=== PATIENT | female | born 1980 | race Caucasian/White ===

== ENCOUNTER 2019-06-04 22:19 | Inpatient (IN) ==
[2019-06-04] MEDS ORDERED: TORADOL IV ONE (22:54)
[2019-06-04] MEDS ORDERED: NS 1,000 ML IV ONE (22:54)
[2019-06-04] MEDS ORDERED: ZOFRAN IV ONE (22:54)
[2019-06-04 23:03] LABS: URINE SOURCE CLEAN CATCH
[2019-06-04 23:23] LABS: URINE EPITHELIAL CELLS >10 /HPF (<10); URINE RBC <10 /HPF (<10)
[2019-06-04 23:24] LABS: BILIRUBIN URINE NEGATIVE (NEGATIVE); CLARITY SLIGHTLY CLOUDY (CLEAR); COLOR AMBER; GLUCOSE URINE NEGATIVE (NEGATIVE); KETONE URINE 40 mg/dL (NEGATIVE); URINE BACTERIA 1+ /HFP; URINE CAST NONE SEEN /LPF; URINE CRYSTAL NONE SEEN /HPF; URINE YEAST NONE SEEN /HPF
[2019-06-04 23:25] LABS: BLOOD URINE NEGATIVE (NEGATIVE); LEUKOCYTES URINE MODERATE (NEGATIVE); NITRITE URINE NEGATIVE (NEGATIVE); PROTEIN URINE TRACE mg/dL (NEGATIVE); SP GRAVITY URINE 1.025
[2019-06-04 23:44] LABS: UR AMPHETAMINES QUAL PRESUMPTIVE POSITIVE (NONE DETECT); UR BARBITUATES QUAL NONE DETECTED (NONE DETECT); UR BENZODIAZEPIN QUAL NONE DETECTED (NONE DETECT); UR CANNABINOIDS QUAL NONE DETECTED (NONE DETECT); UR COCAINE QUAL NONE DETECTED (NONE DETECT); UR METHADONE QUAL NONE DETECTED (NONE DETECT); UR METHAMPHETAMINE QUAL NONE DETECTED (NONE DETECT); UR OPIATES QUAL PRESUMPTIVE POSITIVE (NONE DETECT); UR OXYCODONE QUAL NONE DETECTED (NONE DETECT); UR PCP QUAL NONE DETECTED (NONE DETECT); UR PROPOXYPHENE QUAL NONE DETECTED (NONE DETECT); UR TCA QUAL NONE DETECTED (NONE DETECT)
[2019-06-04 23:45] LABS: BASO# 0.03 X1000 (0.0-0.2); BASO% 0.3 % (0.0-0.8); EOS# 0.11 X1000 (0.0-0.7); EOS% 1.2 % (0.0-10.0); HEMATOCRIT 34.7 % (37.0-47.0); HEMOGLOBIN 10.2 g/dL (12.0-16.0); IMM GRAN# 0.01 X1000 (0.0-0.04); IMM GRAN% 0.1 % (0.0-0.5); LYMPH# 1.01 X1000 (1.2-3.4); MCH 20.1 PG (27-31); MCHC 29.4 g/dL (33-37); MCV 68.3 FL (81-99); MONO# 0.29 X1000 (0.11-0.59); MONO% 3.2 % (1.7-9.3); MPV 10.2 FL (7.4-10.4); NEUT# 7.73 X1000 (1.4-6.5); NEUT% 84.2 % (42.2-75.2); PLT 538 X1000 (130-400); RBC 5.08 XMIL (4.2-5.4); RDW 19.2 % (11.5-14.5); WBC 9.18 X1000 (4.8-10.8)
[2019-06-04 23:49] LABS: AGAP 16; ALBUMIN 4.8 g/dL (3.5-5.0); ALKALINE PHOSPHATASE 157 U/L (32-104); BUN 6 mg/dL (8-22); CALCIUM 9.5 mg/dL (8.8-10.2); CHLORIDE 100 mmol/L (98-107); COSMO 271; CREATININE 0.4 mg/dL (0.5-0.9); ESTIMATED GFR > 60; GLUCOSE 97 mg/dL (70-104); GOT 144 U/L (10-30); GPT 75 U/L (10-36); LIPASE 77 U/L (13-60); POTASSIUM 3.7 mmol/L (3.5-5.1); SODIUM 137 mmol/L (136-145); TCO2 22 mmol/L (25-35); TOTAL PROTEIN 8.5 g/dL (6.3-8.3)
--- NOTE | 2019-06-05 00:39 | PROVIDER DOCUMENTATION ---
This chart was entered by Cheri Dee Scribe, acting as scribe for Ana Morris MD. HPI-Abdominal Pain/GI Problem - General Chief Complaint: Abdominal Pain Stated Complaint: ABD PAIN Time Seen by Provider: 06/04/19 23:06 Source: patient Allergies/Adverse Reactions: Patient Allergies Allergy/AdvReac Type Severity Reaction Status Date / Time Penicillins Allergy Severe RASH Verified 04/14/19 15:00 Home Medications: Home Medication List Medication Instructions Recorded Confirmed Last Taken Type Dicyclomine HCl 20 mg PO Q6H PRN PRN #20 tab 03/03/19 06/04/19 Unknown Rx Ketorolac [Toradol] 10 mg PO Q6H PRN PRN #20 tab 03/03/19 06/04/19 Unknown Rx Ondansetron [Ondansetron Odt] 4 mg PO Q6-8H PRN PRN #10 04/14/19 06/05/19 Unknown Rx tab.rapdis - History of Present Illness-ABD Nature of Presenting Problems: pt is a 38yowf c/o gall bladder attack starting 1430 today. pt had noodles for lunch, no breakfast and mashed potatoes for dinner night before last. pt has been seen in er 2x for same and sts needs cholecystectomy but is waiting on medicaid to have sx. pt has been vomiting white/clear emesis. no dysuria or diarrhea. no sick contacts. She states she had a temp last night 102 but no temp today. She states she is unable to eat anything and the pain is getting worse. Abdominal Pain Onset Location: reports: RUQ Pain Radiation: reports: back Severity in ED: reports: mild Onset/Duration: reports: this afternoon Timing: reports: still present Activities at Onset: reports: none Exposure to sick contacts?: No Modifying Factors: improves with: nothing Associated Symptoms: reports: vomiting. denies: diarrhea Review of Systems - Adult - REVIEW OF SYSTEMS - ADULT Constitutional: reports: no symptoms reported. denies: fever, fatique, night sweats Eyes: reports: no symptoms reported Ears, Nose, Mouth & Throat: reports: no symptoms reported Cardiovascular: reports: no symptoms reported Respiratory: reports: no symptoms reported Gastrointestinal: reports: see HPI, abdominal pain, vomiting. denies: hematemesis, diarrhea, rectal bleeding Genitourinary: reports: no symptoms reported Musculoskeletal: reports: no symptoms reported Integumentary: reports: no symptoms reported Neurological: reports: no symptoms reported Psychiatric: reports: no symptoms reported Endocrine: reports: no symptoms reported Hematologic/Lymphatic: reports: no symptoms reported Allergic/Immunologic: reports: no symptoms reported All Other Systems: Reviewed and Negative Past History - Adult - PAST MEDICAL HISTORY-ADULT Review of Records: reports: Nursing Assessment Review, Medications Reviewed, Social history reviewed & non-contributory. Major Childhood Illnesses: reports: denies history Cardiovascular: reports: denies history Respiratory: reports: denies history Gastrointestinal: reports: cholelithiasis Obstetrical/Gynecological: reports: denies history Genitourinary: reports: denies history Musculoskeletal: reports: denies history Neurological: reports: denies history Psychiatric: reports: anxiety, other (panic attacks) Endocrine/Immune: reports: denies history Other Conditions: reports: denies history - PRIOR SURGERIES/PROCEDURES Surgical/Procedure History: reports: appendectomy, BTL - IMMUNIZATION STATUS Childhood Immunizations: UTD Flu Vaccine: NUTD - FAMILY HISTORY Family History: reviewed, not pertinent - SOCIAL HISTORY Smoking: cigarettes, less than 1 pack/day Provider spent 3-5 mins advising pt. on dangers of tobacco.: Discussed manners to quit use, and f/u contacts for add'l counseling. Substance Use: alcohol Alcohol Use Frequency: occasionally Physical Exam-General - PHYSICAL EXAM-ADULT Initial Vital Signs Reviewed: Yes - CONSTITUTIONAL General Appearance: alert, mild distress (uncomfortable appearing). negative: lethargic, slow to respond, obtunded - EYES Eyes: PERRL/EOMI - HEAD, EARS, NOSE, MOUTH & THROAT HENMT: normocephalic/atraumatic, moist mucous membranes - NECK Neck: non-tender, full range of motion, supple, normal inspection - RESPIRATORY Respiratory: chest non-tender, lungs clear, normal breath sounds - CARDIOVASCULAR Cardiovascular: normal peripheral pulses, regular rate, rhythm - GASTROINTESTINAL (ABDOMEN) Abdominal Exam: normal bowel sounds, soft, no organomegaly, no pulsatile mass, tenderness (rt abd and epigastrum on palp). negative: non tender, distended, guarding, rigid - MUSCULOSKELETAL Back Exam: normal inspection Extremity: normal range of motion, non-tender, normal inspection - SKIN Integumentary: normal color, normal turgor, warm/dry - NEUROLOGIC Neurologic: grossly normal, no motor/sensory deficits - PSYCHIATRIC Psych/Mental Status: normal mood/affect, normal thought content, normal thought process, oriented x 3 Progress - PLAN OF CARE/RESULTS Progress/Plan/Lab Results: Vital Signs - 8 hr 06/04/19 22:24 Temperature 97.4 F L Pulse Rate 76 Respiratory Rate 20 Blood Pressure 117/72 O2 Sat by Pulse Oximetry 95 Laboratory Results - last 24 hr 06/04/19 22:48 Urine Source CLEAN CATCH Orders Category Date Time Status Urine Preg [ED: Urine Bedside] ORDERED Care 06/04/19 22:53 Active CBC WITH ELECTRONIC DIFF [HEME] Stat Lab 06/04/19 22:53 Uncollected COMPREHENSIVE METABOLIC PANEL [CHEM] Stat Lab 06/04/19 22:53 Uncollected LIPASE [CHEM] Stat Lab 06/04/19 22:53 Uncollected URINALYSIS W/POSS RFLX CULT [URINALYSIS] Stat Lab 06/04/19 22:48 Results URINE DRUG SCREEN PL Stat Lab 06/04/19 22:48 Received 0.9% Sodium Chloride Inj [Ns] 1,000 ml Med 06/04/19 22:54 Active IV 999 mls/hr Ketorolac [Toradol] Med 06/04/19 22:54 Discontinued 30 mg IV NOW ONE Ondansetron [Zofran] Med 06/04/19 22:54 Discontinued 4 mg IV NOW ONE Result Diagrams: 06/04/19 22:19 06/04/19 22:19 - CT/MRI 1 CT Study: Abdomen (GBW thickening with pericholecystic fluid and moderate biliary ductal dilation. Findings consistent with cholecystitis.) - CONSULTS/PCP/HOSPITALIST Notification #1 *Consult/PCP/Hospitalist*: Dr Aparicio Time Discussed: 03:15 Consult Disposition: Admit Departure - Departure Date of Disposition Decision: 06/05/19 Time of Disposition Decision: 03:20 DIAGNOSIS: Cholelithiases Disposition: ADMITTED INPATIENT 09 Certified Medical Emergency: Emergent Condition: Stable Referrals and Follow-Ups: None,PCP [Primary Care Provider] - - Critical Care Note This patient required my direct & personal management of CC.: No Attestation - Physician/ CINDY Attestation Patient care was provided by Advanced Practice Provider:: No The physician spent face to face time with patient:: Yes Advanced Practice Provider documentation review:: Supervising physician onsite and consulted in the evaluation and care of this patient. The physician did have a face to face encounter with the patient. This chart was documented by the indicated scribe, (Cheri Dee, Leora) and accurately reflects the services I performed and decisions made by me, Ana Morris MD, as attested by the provider's signature.
[2019-06-05] MEDS ORDERED: ZOSYN 4.5 GM in NS 100 ML IV SCH (03:30)
[2019-06-05] MEDS ORDERED: MORPHINE IV PRN (04:07)
[2019-06-05] MEDS ORDERED: ZOFRAN IV PRN (04:07)
[2019-06-05] MEDS ORDERED: NS 1,000 ML IV ONE ×2 (04:07→07:54)
[2019-06-05] MEDS ORDERED: DILAUDID IM PRN (04:07)
[2019-06-05] MEDS ORDERED: TORADOL IV PRN (05:30)
--- NOTE | 2019-06-05 07:58 | Diag Imaging Result Doc PS360 ---
EXAM: CT ABD/PELVIS W/IV CONT ONLY 06/04/2019 HISTORY: cholecystitis TECHNIQUE: This exam was performed using automated exposure control, adjustment of mA or kV according to patient size, and/or use of iterative reconstruction technique. COMMENT: There are ill-defined opacities present in the right lower lobe which may indicate mild bronchopneumonia or atelectasis. There is intrahepatic biliary dilatation. There is pericholecystic fluid. There is a 4 mm stone layering dependently in the gallbladder. The spleen is not enlarged. The adrenal glands are not enlarged. The pancreas is within normal limits. The proximal common bile duct measures 11 mm, the distal common bile duct measures over 8 mm. There are no visible stones in the common bile duct but there is abrupt change in caliber at the ampulla. The kidneys are without evidence of hydronephrosis mass or stones. The aorta is not distended. There is no evidence of bowel obstruction or significant adenopathy. Pelvis: The urinary bladder is slightly distended and there is some free fluid in the cul-de-sac. There is some apparent debris in the vaginal vault. There is a small cyst in the right ovary measuring 14 mm. There is no evidence of acute bony abnormality. IMPRESSION: Cholelithiasis and acute cholecystitis with biliary dilatation. The possibility of distal common bile duct stones or debris cannot be excluded. Dilatation of the urinary bladder and free pelvic fluid. Atelectasis in the right lower lobe. Electronically signed by Carson Gallagher 06/05/2019 7:56 AM
[2019-06-05] MEDS ORDERED: NS 100 ML IV SCH (08:00)
[2019-06-05] MEDS ORDERED: NS 1,000 ML IV SCH (09:00)
[2019-06-05] MEDS ORDERED: LEVAQUIN 500 MG/D5W 500 MG/100 ML IVPB IV SCH (09:30)
[2019-06-05] MEDS ORDERED: LR 1,000 ML ONE (09:52)
[2019-06-05] MEDS ORDERED: SENSORCAINE 0.25%/EPI 1:200,000 ONE (09:52)
[2019-06-05] MEDS ORDERED: SODIUM CHLORIDE 0.9% ONE (09:52)
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
[2019-06-05] MEDS ORDERED: QUELICIN (DOSE) ONE (10:18)
[2019-06-05] MEDS ORDERED: DIPRIVAN 1% ONE (10:18)
[2019-06-05] MEDS ORDERED: SODIUM CHLORIDE 0.9% 10 ML ONE (10:18)
[2019-06-05] MEDS ORDERED: NORCURON ONE (10:18)
[2019-06-05] MEDS ORDERED: VERSED ONE ×2 (10:18→10:20)
[2019-06-05] MEDS ORDERED: XYLOCAINE-MPF 2% ONE (10:18)
[2019-06-05] MEDS ORDERED: ROBINUL ONE ×2 (10:20→11:24)
[2019-06-05] MEDS ORDERED: DECADRON ONE (11:21)
[2019-06-05] MEDS ORDERED: ZOFRAN ONE (11:21)
[2019-06-05] MEDS ORDERED: NEOSTIGMINE ONE (11:25)
--- NOTE | 2019-06-05 11:50 | Diag Imaging Result Doc PS360 ---
OPERATIVE CHOLANGIOGRAM - 06/05/2019 INDICATION: CHOLECYSTITIS TECHNIQUE: The exam was performed by the patient's surgeon. Total fluoroscopy time was 26 seconds. Two images were obtained. COMPARISON: CT from earlier FINDINGS: Contrast was infused into the cystic duct. There are some filling defects in the distal most common bile duct. There is no passage of contrast into the duodenum. IMPRESSION: Findings concerning for obstructing stones at the distal common bile duct. Electronically signed by Eliezer Molina 06/05/2019 11:48 AM
[2019-06-05] MEDS: DILAUDID ONE ×2 (12:39→12:48)
[2019-06-05] MEDS: NS 1,000 ML IV SCH (14:19)
[2019-06-05] MEDS: NORCO-10 PO PRN ×2 (18:45→23:24)
--- NOTE | 2019-06-05 20:36 | OPERATIVE NOTE ---
PROCEDURE DATE: 06/05/2019 PROCEDURE PERFORMED: Laparoscopic cholecystectomy with operative cholangiogram and extraction of 3 common bile duct stones. SURGEON: Tamir Aparicio MD. HOSE STRIPPER: Fatuma Lewis RN. PREOPERATIVE DIAGNOSIS: Acute and chronic calculous cholecystitis. POSTOP DIAGNOSIS: Acute and chronic calculous cholecystitis with choledocholithiasis. FINDINGS: The cholangiogram revealed a normal size common duct, but there were filling defects noted in the distal duct. There is chronic change in the gallbladder wall. There was edema consistent with acute cholecystitis. There was a cystic duct stone noted when we did the cystic ductotomy and there were 3 stones extracted from the common duct after the cholangiogram was finished. DESCRIPTION OF PROCEDURE: Satisfactory general endotracheal anesthesia was achieved. The abdomen is prepped and draped in a sterile fashion. We anesthetized the skin with 0.5 Marcaine with epinephrine. We 1st made a transverse incision to the base of the umbilicus. We carried our incision down the fascia and scored the fascia in a vertical way. Introduced 11 trocar Optiview technique into the abdominal cavity. We insufflated through this trocar under direct visualization, used a 5 trocar midclavicular line, 5 trocar near the anterior axillary line and 11 mm trocar in the midepigastrium. Placed the patient in reverse Trendelenburg and turned her to the left. We grasped the fundus of the gallbladder reflected cephalad. We began dissection of the omentum off the fundus then the infundibulum. We then began dissecting the triangle of Calot. We did obtain a critical view. The artery was clipped proximally x2 and distally x1. The cystic duct was clipped near the junction of the gallbladder and incised the cystic duct. Then as soon as we opened the cystic duct, the stone came out. We did get some bile back flow then. We introduced a Radha catheter, shot the cholangiogram and the findings above were noted. We removed the cholangiogram catheter and actually milked out 3 stones from the common duct and retrieved them with a stone cup. We clipped the cystic duct on the opposite side the cystic ductotomy x2 and transected the cystic duct. We then used the cautery spatula to dissect the gallbladder away from the liver. After complete separation of gallbladder from the liver, we changed the videolaparoscope to the midepigastric trocar. We introduced a claw forceps through the umbilical trocar. We grasped the infundibulum and delivered the gallbladder out of the abdominal cavity. We looked back. Hemostasis was satisfactory. We flattened the patient. We used a David-Micah wound closure for the epigastrium completely desufflated and removed our trocars, closed the fascia at the umbilicus with 2-0 Polysorb [id number] fascial stitches. We then closed the skin at each incision with 4-0 Polysorb subcuticular stitches. Sterile OpSites were applied. She tolerated it well and was sent to the recovery room in satisfactory condition. cc: Tamir Aparicio MD
[2019-06-05] MEDS: PERIDEX MT SCH (23:24)
[2019-06-05] MEDS ORDERED: NICODERM PATCH TD ONE (23:30)
[2019-06-06] MEDS: NS 1,000 ML IV SCH (02:50)
[2019-06-06 07:43] LABS: BASO# 0.01 X1000 (0.0-0.2); BASO% 0.1 % (0.0-0.8); EOS# 0.04 X1000 (0.0-0.7); EOS% 0.6 % (0.0-10.0); HEMATOCRIT 28.1 % (37.0-47.0); HEMOGLOBIN 7.9 g/dL (12.0-16.0); LYMPH% 25.3 % (20.5-51.1); MCH 19.7 PG (27-31); MCHC 28.1 g/dL (33-37); MCV 70.1 FL (81-99); MONO# 0.26 X1000 (0.11-0.59); MONO% 3.9 % (1.7-9.3); MPV 9.8 FL (7.4-10.4); NEUT# 4.71 X1000 (1.4-6.5); NEUT% 70.1 % (42.2-75.2); PLT 412 X1000 (130-400); RBC 4.01 XMIL (4.2-5.4); RDW 18.9 % (11.5-14.5); WBC 6.72 X1000 (4.8-10.8)
[2019-06-06 08:24] LABS: ALBUMIN 3.1 g/dL (3.5-5.0); DIRECT BILIRUBIN 0.2 mg/dL (0.00-0.20); TOTAL BILIRUBIN 0.84 mg/dL (0.20-1.00); TOTAL PROTEIN 6.1 g/dL (6.3-8.3)
[2019-06-06] MEDS: PERIDEX MT SCH (10:10)
[2019-06-06] MEDS: NORCO-10 PO PRN ×2 (10:12→13:59)
[2019-06-06 11:38] VITALS: BP 141/66
--- NOTE | 2019-06-06 16:38 | GENERAL SURGERY PROGRESS NOTE ---
DATE: 06/06/2019 She is postop day 1 after laparoscopic cholecystectomy. Her wounds look fine. She has tolerated liquids fine. She feels good. Denies any nausea. Her wounds were okay. PLAN: Discharge. I did discuss with her the fact that she might have another episode of pain from a possible residual stone in her duct and she understands that. She will return to see me in the office in a week. She understands to avoid fatty foods for now. cc: Tamir Aparicio MD
== END 2019-06-06 14:35 | disposition home or self-care (01) | DRG 419 ==
LOC: P.ED 22:19 → 4N 06-05 07:01
PROVIDERS: ADMIT Surgery; ATTEND Surgery